=== PATIENT | male | born 1995 | race African-American/Black ===

== ENCOUNTER 2016-06-05 18:26 | Emergency (ER) | payer OTHER ==
[~2016-06-05] VITALS: Ht 165.1 cm; Wt 104.7 kg
[2016-06-05 19:28] LABS: HEMATOCRIT 43.9 % (38.0-50.0); MCH 29.8 PG (29.0-34.0); MCHC 33.9 G/DL (30.0-36.0); MCV 87.8 FL (86-99); MEAN PLAT.VOLUME 10.2 uM^3 (9.0-12.4); PLATELET COUNT 276 K/uL (156-360); RBC DIS.WIDTH-CV 11.4 % (11.8-14.6); RBC DIS.WIDTH-SD 36.5 % (39-53); WHITE BLOOD COUNT 6.1 K/uL (4.1-10.2)
[2016-06-05 19:41] LABS: CHLORIDE 101 mEq/L (99-109); SODIUM 139 mEq/L (136-147)
[2016-06-05 19:43] LABS: GLUCOSE 102 mg/dL (70-99)
[2016-06-05 19:44] LABS: ANION GAP 8 MEQ/L (2-14)
[2016-06-05 19:45] LABS: TOTAL BILIRUBIN 0.5 mg/dL (0.0-1.0)
[2016-06-05 19:46] LABS: SERUM ETHYL ALCOHOL < 10 mg/dL
[2016-06-05 19:47] LABS: ALKALINE PHOSPHATASE 105 IU/L (3-129); GFR ESTIMATE (CALCULATED) > 59 mL/min/
[2016-06-05 19:48] LABS: UREA NITROGEN (BUN) 9 mg/dL (9-23)
[2016-06-05 20:38] LABS: ADD MIUA? NO; BILIRUBIN NEGATIVE; BLOOD NEGATIVE; COLOR YELLOW ((YELLOW)); GLUCOSE (STRIP) NEGATIVE; KETONES NEGATIVE; LEUKOCYTES NEGATIVE; NITRITE NEGATIVE; PROTEIN (STRIP) NEGATIVE; SPECIFIC GRAVITY 1.013 (1.000-1.030); UROBILINOGEN 0.2 MG/DL (0.2-1.0)
[2016-06-05 20:51] LABS: AMPHETAMINE NEGATIVE (500 ng/mL); BARBITURATES NEGATIVE (200 ng/mL); BENZODIAZEPINES NEGATIVE (150 ng/mL); COCAINE NEGATIVE (150 ng/mL); INTERNAL CONTROLS VALID? YES; METHADONE NEGATIVE (200 ng/mL); METHAMPHETAMINE NEGATIVE (500 ng/mL); OPIATES (MORPHINE) NEGATIVE (100 ng/mL); OXYCODONE NEGATIVE (100 ng/mL); PHENCYCLIDINE NEGATIVE (25 ng/mL); PROPOXYPHENE NEGATIVE (300 ng/mL); THC CANNABINOIDS NEGATIVE (50 ng/mL); TRICYCLIC ANTIDEPRESSANTS PRESUMPTIVE POSITIVE (300 ng/mL)
[2016-06-05 23:24] VITALS: BP 150/100
== END 2016-06-05 23:26 ==
LOC: EME 18:26 → EDBD 18:26 → EME 23:26
PROVIDERS: Emergency Medicine
DX: F19.10 Other psychoactive substance abuse, uncomplicated (principal); Z91.018 Allergy to other foods
CPT/HCPCS: 80053; 81003; 85027; 93005; 99281; 99285; G0480; J7030